=== PATIENT | female | born 1935 | race Caucasian/White ===

== ENCOUNTER 2016-04-19 12:48 | Inpatient (IN) | payer MEDICARE, OTHER ==
[2016-04-19 13:42] LABS: #Basophils 0.1 thou/uL (0.0-0.2); #Lymphocytes 1.1 thou/uL (1.20-3.40); #Monocytes 1.4 thou/uL (0.11-0.59); #Neutrophils 15.4 thou/uL (1.40-6.50); %Basophils 0.5 % (0.0-1.0); %Eosinophils 0.3 % (0.0-10.0); %Monocytes 7.8 % (0.0-10.0); Hematocrit 40.5 % (36.0-47.0); Mean Platelet Volume 6.7 fL (7.4-10.4); Red Blood Cell (RBC) Count 4.42 mill/uL (4.20-5.40); White Blood Cell (WBC) Count 18.1 thou/uL (4.8-10.8)
[2016-04-19 13:59] LABS: ALT (SGPT) 21 U/L (0-55); AST (SGOT) 37 U/L (5-34); Alkaline Phosphatase 56 U/L (40-150); Anion Gap 16 mmol/L (10-20); BUN (Urea Nitrogen) 21 mg/dL (9.8-20.1); Bilirubin, Total 0.7 mg/dL (0.2-1.2); Calc. Creatinine Clearance 0 mL/min (70-130); Calcium 9.5 mg/dL (7.8-10.44); Carbon Dioxide 25 mmol/L (23-31); Chloride 102 mmol/L (98-107); Estimated GFR-MDRD 53; Globulin 3.6 g/dL (2.4-3.5); Protein, Total 7.2 g/dL (5.8-8.1)
[2016-04-19 14:01] LABS: Troponin I 0.019 ng/mL (< 0.028)
[2016-04-19 14:20] LABS: Bilirubin Negative (Negative); Blood, Urine Small (Negative); Glucose, Urine (Dipstick) Negative (Negative); Ketone, Urine 15 mg/dL (Negative); Nitrite Negative (Negative); Protein, Urine (Dipstick) 100 mg/dL (Neg-Trace); Urobilinogen 0.2 mg/dL (0.2-1.0)
[2016-04-19 14:21] LABS: RBC/HPF 0-3 HPF (0-3)
[2016-04-19 14:22] LABS: Bacteria/HPF 3+ HPF (None Seen)
[2016-04-19] MEDS ORDERED: cefTRIAXone\\ROCEPHIN 1 GM VIAL ONE (14:30)
[2016-04-19] MEDS ORDERED: Ondansetron HCl/PF 4 MG/2 ML Vial IVP PRN (16:36)
[2016-04-19] MEDS ORDERED: Acetaminophen 325 MG TAB PO PRN (16:36)
[2016-04-19] MEDS ORDERED: Ondansetron ODT 4 MG TAB SL PRN (16:36)
[2016-04-19 17:18] VITALS: BMI 327.7
[2016-04-19] MEDS ORDERED: Non-Formulary Item 1 EACH (Melatonin [Melatonin] 3 MG) PO PRN (18:12)
[2016-04-19] MEDS ORDERED: ALPRAZolam 0.5 MG TAB PO PRN (18:15)
[2016-04-19] MEDS: Sodium Chloride 0.9% 1,000 ML IV SCH ×3 (19:07→22:38)
--- NOTE | 2016-04-19 19:33 | CT ---
CT OF THE BRAIN WITHOUT CONTRAST: 04/19/[address] was obtained following trauma. Review was made of a prior MRI dated 10/04/14. The ventricles are dilated but commensurate with the degree of atrophy present which is considerable . They are not different in size than in 2015. Profound deep white matter lucency is consistent wit h chronic microvascular ischemia. There were no focal findings strongly suggestive of acute stroke o r edema. No mass was seen. No intracranial bleeding or extra-axial hematoma was noted. The calvarium appears intact. There is no air fluid level in the sphenoid sinus. IMPRESSION: Moderately severe atrophy and chronic ischemic change but no acute intracranial finding. POS: HOME
[2016-04-19] MEDS: TROSPIUM 20 MG TABLET PO SCH (21:33)
[2016-04-20] MEDS: Enoxaparin Sodium 40 MG/0.4 ML SYRINGE SC SCH (05:31)
[2016-04-20 06:55] LABS: Anion Gap 10 mmol/L (10-20); BUN (Urea Nitrogen) 18 mg/dL (9.8-20.1); Calc. Creatinine Clearance 691 mL/min (70-130); Calcium 8.7 mg/dL (7.8-10.44); Carbon Dioxide 27 mmol/L (23-31); Chloride 107 mmol/L (98-107); Estimated GFR-MDRD 63
[2016-04-20 07:35] LABS: #Basophils 0.1 thou/uL (0.0-0.2); #Eosinphils 0.2 thou/uL (0.0-0.7); #Lymphocytes 1.8 thou/uL (1.20-3.40); #Monocytes 1.2 thou/uL (0.11-0.59); #Neutrophils 8.9 thou/uL (1.40-6.50); %Basophils 0.9 % (0.0-1.0); %Eosinophils 1.5 % (0.0-10.0); %Monocytes 10.2 % (0.0-10.0); Hematocrit 34.6 % (36.0-47.0); Mean Platelet Volume 6.9 fL (7.4-10.4); Red Blood Cell (RBC) Count 3.76 mill/uL (4.20-5.40); White Blood Cell (WBC) Count 12.2 thou/uL (4.8-10.8)
[2016-04-20] MEDS: Sodium Chloride 0.9% 1,000 ML IV SCH (08:49)
[2016-04-20] MEDS: Aspirin 81 mg Enteric Coated Tablet PO SCH (08:52)
[2016-04-20] MEDS: TROSPIUM 20 MG TABLET PO SCH ×2 (08:52→20:22)
[2016-04-20] MEDS: Atorvastatin Calcium 10 MG TAB PO SCH (08:56)
[2016-04-20] MEDS: Hydrochlorothiazide 25 MG TAB PO SCH (08:57)
[2016-04-20] MEDS: Lisinopril 10 MG TAB PO SCH (08:58)
[2016-04-20] MEDS ORDERED: Lisinopril 20 MG TAB PO SCH ×2 (09:00)
[2016-04-20] MEDS ORDERED: Hydrochlorothiazide 25 MG TAB PO SCH (09:00)
[2016-04-20] MEDS: Glimepiride 2 MG TAB PO SCH ×3 (09:46→16:44)
[2016-04-20] MEDS ORDERED: Potassium Chloride 20 MEQ TAB PO SCH (10:00)
--- NOTE | 2016-04-20 11:49 | HP ---
DATE OF SERVICE: 04/19/2016 PRIMARY CARE PHYSICIAN: Dr. Pate. ADMITTING PHYSICIAN: Dr. Gibbs. CHIEF COMPLAINT: Generalized weakness with worsening mental status. HISTORY OF PRESENT ILLNESS: Ms. Dhillon is an 80-year-old female with history of hyperten anusha, diabetes, hyperlipidemia, and senile vascular dementia, presented to the emergency room compla ining of worsening mental status and progressive weakness. She was at her baseline a week ago when Adonay, patient's son and acting as medical surrogate noticed that she was becoming weak, she fell la st Sunday and complained of left ankle and back pain afterwards. He also noted decreased appetite a nd over the past 2 days, became confused and more agitated than usual. Yesterday, she refused to ea t. She will have periods of and intermittent agitations with unfamiliar faces, she gets anxious when her son is around. They were advised by Dr. Pate to medicate patient with Zoloft 50 mg late in the afternoon and as needed in the morning if she gets too anxious. Adonay did not report any sign of respiratory distress, chest pain, nausea, vomiting or diarrhea. At the emergency room, she had a temperature of 99.5, blood pressure of 155/63, respiratory rate of 16, O2 sat was 95% at room air. Labs showed WBC of 18, hemoglobin of 13.5, hematocrit of 40, platelet count of 423, neutrophils of 8 5, lymphocytes of 6. Comprehensive metabolic panel: Sodium was 139, potassium 3.5, BUN of 21, creatinine of 1, GFR of 53 , glucose of 184, AST of 37, ALT of 21. Urinalysis showed yellow, slightly cloudy urine with pH of 5.5, specific gravity of 1.025, urine pro tein of 100, urine ketones was positive at 15, presence of small blood, presence of moderate amount of leukocytes, wbc's of 50, positive for epithelial cells of 4-6, and urine bacteria of 3+. CT of the brain showed moderately severe atrophy and chronic ischemic changes, but no acute intracra nial finding. There were no focal findings suggesting acute stroke or edema, no mass seen. No intr acranial bleeding or extraaxial hematoma noted. Lactic acid was 1.0. Patient was given IV Rocephin and fluids to treat urinary tract infection. Her symptoms and findings were consistent for UTI cau sing her progressive weakness and worsening mental status. She is meeting criteria for inpatient at. Initial plan was to transfer patient to [facility], but because of overflow stat , the family agreed the patient to stay at [facility]. PAST MEDICAL HISTORY: 1. Hypertension. 2. Diabetes mellitus. 3. Hyperlipidemia. 4. Depression. 5. Vascular dementia with behavioral changes. 6. Smoker. PAST SURGICAL HISTORY: 1. Back surgery. 2. Carpal tunnel release. PERSONAL SOCIAL HISTORY: The patient lives with son, Adonay, and his for the past 5 years, she has 6 children. She smokes about 1-2 cigarettes when with her sons. She denies alcohol use. MEDICATIONS: 1. Lisinopril/hydrochlorothiazide 20/12.5 one half tablet daily. 2. Glimepiride 1 mg b.i.d. 3. Sertraline 50 mg q. daily to b.i.d. 4. Namenda XR 1 tablet daily. 5. Metformin 250 mg b.i.d. 6. Multivitamins daily. 7. Aspirin 81 mg daily. 8. Januvia 100 mg daily. 9. Simvastatin 20 mg daily. 10. VESIcare 10 mg daily. 11. Seroquel 25 mg 2 tablets at bedtime. 12. Melatonin 3 mg 1 tab at bedtime. ALLERGIES: No known drug allergies. REVIEW OF SYSTEMS: GENERAL: No fever, no chills. Positive for decreased appetite. HEENT: No nasal congestion, no sore throat, no sinus pressure. PULMONARY: No shortness of breath, no wheezing. CARDIOVASCULAR: Negative for chest pain. Positive for edema on left ankle. GASTROINTESTINAL: No abdominal pain, no nausea. Negative for vomiting. Negative for diarrhea. MUSCULOSKELETAL: Occasional joint pains and stiffness. Positive for back pain. NEUROLOGIC: Positive for worsening mental status. Positive for insomnia. PSYCHIATRIC: Negative for depression. Occasional anxiety. PHYSICAL EXAMINATION: VITAL SIGNS: Blood pressure of 168/80, O2 sat 98%, respiratory rate of 18, pulse of 72, temperature of 98.8. GENERAL: The patient is well-developed, well-nourished, pleasant, not in distress with mild agitati on. HEENT: Normocephalic, atraumatic. Pupils equally reactive to light. Negative for tonsillopharynge al congestion. NECK: Supple. Negative for lymphadenopathy. CHEST AND LUNGS: Symmetrical expansion. Clear to auscultation bilaterally. HEART: Regular rate and rhythm. Negative for murmur, rubs or gallops. ABDOMEN: Flat, soft, nontender. Normoactive bowel sounds. Negative for CVA tenderness. EXTREMITIES: Negative for edema. Spontaneous movement of both upper and lower extremities. PSYCHIATRIC: Anxious, appears agitated when questioning. LABORATORY DATA: Reviewed. ASSESSMENT: 1. Altered mental status. 2. Urinary tract infection. 3. Generalized weakness. 4. History of falls. 5. Hypertension. 6. Diabetes mellitus, controlled. 7. Gait instability. 8. Vascular senile dementia. PLAN: 1. Continue IV Rocephin. 2. Continue fluid hydration, taper as needed. 3. Repeat labs in a.m. 4. Reconcile present medication and adjust as needed depending on clinical status. 5. Lovenox and SCDs for DVT prophylaxis. 6. May start physical therapy when stable. 7. Referred to clinical commercial portfolio manager for discharge planning and advised regarding potential need for DME prior to her discharge.
[2016-04-20] MEDS: cefTRIAXone\\ROCEPHIN 1 GM in Sodium Chloride 0.9% 100 ML IVPB SCH (14:35)
[2016-04-21] MEDS: Enoxaparin Sodium 40 MG/0.4 ML SYRINGE SC SCH (05:13)
[2016-04-21] MEDS: Glimepiride 2 MG TAB PO SCH ×2 (09:16→18:57)
[2016-04-21] MEDS: Potassium Chloride 20 MEQ TAB PO SCH (09:18)
[2016-04-21] MEDS: Aspirin 81 mg Enteric Coated Tablet PO SCH (09:18)
[2016-04-21] MEDS: Hydrochlorothiazide 25 MG TAB PO SCH (09:19)
[2016-04-21] MEDS: Atorvastatin Calcium 10 MG TAB PO SCH (09:19)
[2016-04-21] MEDS: Lisinopril 10 MG TAB PO SCH (09:20)
[2016-04-21] MEDS: TROSPIUM 20 MG TABLET PO SCH ×2 (09:21→20:41)
--- NOTE | 2016-04-21 09:23 | PRG ---
DATE OF SERVICE: 04/20/2016 PRIMARY CARE PHYSICIAN: Dr. Michelle Pate ADMITTING PHYSICIAN: Dr. Meri Gibbs SUBJECTIVE: The patient denies any pain. She slept well last night. No agitation This morning; however, this afternoon she was getting anxious, she was medicated with Xanax 0.25 half a tablet an hour ago. She has no fever, appetite is just fine. OBJECTIVE: VITAL SIGNS: Blood pressure 139/75, pulse rate of 80, respiratory rate of 20, O2 sat 93% on room air. Temperature 98.7. GENERAL: The patient is alert, oriented x2 (person and place). HEENT: Normocephalic, atraumatic. Negative for tonsillopharyngeal congestion. NECK: Supple, negative for lymphadenopathies. CHEST AND LUNGS: Symmetrical expansion. Clear to auscultation bilaterally. HEART: Regular rate and rhythm. Negative for murmur, rubs or gallops. EXTREMITIES: Negative for edema. Spontaneous movement of both upper and lower extremities. PSYCHIATRIC: Anxious, responsive, no agitations. LABORATORY DATA: CBC: WBC of 12, hemoglobin of 12, hematocrit of 35, platelet count of 362. Basic metabolic panel: Sodium of 141, potassium of 3.2, chloride of 107, carbon dioxide of 27, BUN of 18, creatinine of 0.86. Accu- Cheks fasting was 84. ASSESSMENT: 1. Urinary tract infection. 2. Altered mental status, improving. 3. Hypokalemia. 4. Generalized weakness. 5. History of falls. 6. Hypertension. 7. Diabetes mellitus, controlled. 8. Gait instability. 9. Senile vascular dementia. PLAN: 1. Continue IV Rocephin, Hep-Lock IV fluids. 2. Potassium is being replaced. 3. We will consult PT for evaluation and treatment to address physical deconditioning. 4. Continue Lovenox and sequential compression devices for deep venous thrombosis prophylaxis. DISPOSITION: Discharge to home once clinically stable. [facility]
[2016-04-21] MEDS: cefTRIAXone\\ROCEPHIN 1 GM in Sodium Chloride 0.9% 100 ML IVPB SCH (14:16)
[2016-04-22] MEDS: Enoxaparin Sodium 40 MG/0.4 ML SYRINGE SC SCH (05:14)
[2016-04-22 06:25] VITALS: TEMP 97.9
[2016-04-22] MEDS: Atorvastatin Calcium 10 MG TAB PO SCH (08:52)
[2016-04-22] MEDS: TROSPIUM 20 MG TABLET PO SCH (08:52)
[2016-04-22] MEDS: Lisinopril 10 MG TAB PO SCH (08:53)
[2016-04-22] MEDS: Hydrochlorothiazide 25 MG TAB PO SCH (08:55)
[2016-04-22] MEDS: Aspirin 81 mg Enteric Coated Tablet PO SCH (08:56)
[2016-04-22] MEDS: Potassium Chloride 20 MEQ TAB PO SCH (08:57)
[2016-04-22] MEDS: Glimepiride 2 MG TAB PO SCH (08:57)
[2016-04-22 09:03] VITALS: BP 120/56
[2016-04-22] MEDS: cefTRIAXone\\ROCEPHIN 1 GM in Sodium Chloride 0.9% 100 ML IVPB SCH (09:13)
--- NOTE | 2016-04-22 13:27 | PRG ---
DATE OF SERVICE: 04/21/2016. PRIMARY CARE PHYSICIAN: Dr. Pate. ADMITTING PHYSICIAN: Dr. Gibbs. SUBJECTIVE: She is doing very well, occasional agitations, controlled with her present Zoloft and X anax. No reported fever. Appetite is stable. She was able to participate with physical therapy an d walk 114 feet x2, she required resting breaks and she requires constant reminders about the use of her walker. Limiting factors regarding her physical therapy were due to decreased attention, decre ase endurance and strength. She has fairly she tolerated the physical therapy quite well. OBJECTIVE: VITAL SIGNS: Blood pressure of 120/56, temperature of 98.1, pulse of 70, respiratory rate of 20, O2 saturation 96% on room air. GENERAL: The patient is alert and oriented x2. HEENT: Normocephalic, atraumatic. Pupils equally reactive to light. Negative for tonsillopharynge al congestion. NECK: Supple. Negative for lymphadenopathy. CHEST AND LUNGS: Symmetrical expansion. Clear to auscultation bilaterally. HEART: Regular rate and rhythm. Negative for murmur, rubs or gallops. EXTREMITIES: Negative for edema. Spontaneous movement of both upper and lower extremities. NEUROLOGIC: No focal deficits. PSYCHIATRIC: Anxious and responsive, no agitations. LABORATORY DATA: Reviewed. ASSESSMENT: 1. Urinary tract infection. 2. Altered mental status, improved, back to baseline. 3. Hypokalemia. 4. Generalized weakness. 5. History of falls. 6. Hypertension. 7. Diabetes mellitus, controlled. 8. Gait instability. 9. Senile vascular dementia. PLAN: 1. Continue IV Rocephin. 2. Continue present medication, discharge to home in a.m. 3. We will order a rolling walker and bedside commode, prescription to be sent to [facility] in [place]. 4. Resume Home Health with physical therapy.
--- NOTE | 2016-04-22 17:33 | DIS ---
DATE OF ADMISSION: 04/19/2016 DATE OF DISCHARGE: 04/22/2016 PRIMARY CARE PHYSICIAN: Dr. Pate. ADMITTING PHYSICIAN: Dr. Gibbs. FINAL DIAGNOSES: 1. Urinary tract infection. 2. Altered mental status, resolved. 3. Hypokalemia, replaced. 4. Generalized weakness, improved. 5. History of falls. 6. Hypertension. 7. Diabetes mellitus. 8. Gait instability. 9. Senile vascular dementia. DISCHARGE MEDICATIONS: 1. Lisinopril/HCTZ 20/12.5 one half tablet daily. 2. Melatonin 3 mg at bedtime. 3. Namenda XR 28 mg daily. 4. Metformin 250 mg b.i.d. 5. Seroquel 25 mg 2 tablets at bedtime. 6. Zoloft 50 mg b.i.d. 7. Simvastatin 20 mg at bedtime. 8. Januvia 100 mg daily. 9. VESIcare 10 mg daily. 10. Bactrim DS 1 tablet b.i.d. for 7 days. HISTORY OF PRESENT ILLNESS/COURSE IN THE [place]: Ms. Dhillon is an 80-year-old female with history of hypertension, diabetes, hyperlipidemia, and senile vascular dementia who presented to the emergency room complaining of worsening mental status and progressive weakness. She was at her baseline a week ago when son noticed patient was becoming week, she fell last Sunday, complained of left ankle and back pain after the fall. She had a decreased appetite prior to her admission, noticed that she was more confused and agitated than usual. At the emergency room, she had labs showing normal CMP. Urinalysis showed positive for bacteria, WBC and small amount of blood. Her CT scan showed moderately severe atrophy and chronic ischemic changes with no bleeding. She was placed on IV Rocephin. Her urine culture grew Klebsiella pneumoniae, pansensitive. Her blood cultures x2 were negative. Her white count had improved from 18 down to 12. She exhibited mild anxiety and agitations that were controlled with medications. Her blood pressure remained stable throughout her stay. Patient was evaluated by physical therapy, she tolerated treatment and was advised to use rolling walker at all times. She had a fever last night, but was back to normal temperature this morning. She denies any acute concerns prior to her discharge. Re-evaluation and after discussion with her son, Adonay, she has noted stable for discharge and Adonay reported she would be better and less agitated when she is back home and mentioned that they can manage her condition at home. INSTRUCTIONS: 1. Follow up with PCP, Dr. Pate in 3 days. They will call and make the appointment. 2. Resume Home Health with physical therapy to address her weakness. DISPOSITION: Discharge to home under the care of son with Home health assistance. CONDITION: Stable. ACTIVITY: Ad adrian with fall precautions. Advised to use rolling walker at all times. DIET: Diabetic diet. MTDD
== END 2016-04-22 10:35 | disposition home health service (06) | DRG 690 ==
LOC: BURERS 12:48 → BURMED 15:00
PROVIDERS: ADMIT Family Medicine; ATTEND Family Medicine
DX: N30.00 Acute cystitis without hematuria (principal); F01.50 Vascular dementia, unspecified severity, without behavioral disturbance, psychotic disturbance, mood disturbance, and anxiety; B96.1 Klebsiella pneumoniae [K. pneumoniae] as the cause of diseases classified elsewhere; E11.9 Type 2 diabetes mellitus without complications; I10 Essential (primary) hypertension; E87.6 Hypokalemia; R26.9 Unspecified abnormalities of gait and mobility; F17.210 Nicotine dependence, cigarettes, uncomplicated; F41.9 Anxiety disorder, unspecified
CPT/HCPCS: 36416; 51701; 70450; 80048; 80053; 81003; 81015; 82553; 83605; 84443; 84484; 85025; 87040; 87077; 87086; 87186; 93005; 96365; 36415-59; A4216; A4353; G8978-GP-CM; G8979-GP-CL; J0696; J1650; J7050

== ENCOUNTER 2016-05-03 12:51 | Emergency (ER) | payer MEDICARE ==
[2016-05-03 13:36] LABS: Bilirubin Negative (Negative); Blood, Urine Negative (Negative); Clarity Clear (Clear); Glucose, Urine (Dipstick) Negative (Negative); Leukocyte Negative (Negative); Nitrite Negative (Negative); Protein, Urine (Dipstick) Negative (Neg-Trace); Urobilinogen 0.2 mg/dL (0.2-1.0); pH, Urine 5.5 (5.0-9.0)
[2016-05-03 13:40] LABS: #Basophils 0.1 thou/uL (0.0-0.2); #Eosinphils 0.2 thou/uL (0.0-0.7); #Lymphocytes 1.7 thou/uL (1.20-3.40); #Neutrophils 10.5 thou/uL (1.40-6.50); %Basophils 0.8 % (0.0-1.0); %Eosinophils 1.7 % (0.0-10.0); %Lymphocytes 12.3 % (21.0-51.0); %Monocytes 7.6 % (0.0-10.0); %Neutrophils 77.6 % (42.0-75.0); Hemoglobin 13.7 g/dL (12.0-16.0); Mean Corpuscular HGB CONC 32.9 g/dL (32.0-36.0); Mean Corpuscular Hemoglobin 30.6 pg (27.0-31.0); Mean Platelet Volume 5.5 fL (7.4-10.4); Platelet Count 606 thou/uL (130-400); RBC Distribution Width 12.3 % (11.5-14.5); Red Blood Cell (RBC) Count 4.49 mill/uL (4.20-5.40); White Blood Cell (WBC) Count 13.6 thou/uL (4.8-10.8)
[2016-05-03 13:53] LABS: Amylase 62 U/L (20-160); Lipase 105 U/L (8-78)
[2016-05-03 13:56] LABS: CKMB 1.9 ng/mL (0-6.6); Troponin I 0.012 ng/mL (< 0.028)
[2016-05-03 13:56] LABS: ALT (SGPT) 35 U/L (0-55); AST (SGOT) 34 U/L (5-34); Albumin 3.8 g/dL (3.4-4.8); Alkaline Phosphatase 63 U/L (40-150); Anion Gap 15 mmol/L (10-20); BUN (Urea Nitrogen) 22 mg/dL (9.8-20.1); Bilirubin, Total 0.3 mg/dL (0.2-1.2); CK (CPK) 62 U/L (29-168); Calc. Creatinine Clearance 0 mL/min (70-130); Calcium 9.5 mg/dL (7.8-10.44); Carbon Dioxide 23 mmol/L (23-31); Chloride 107 mmol/L (98-107); Estimated GFR-MDRD 47; Globulin 3.6 g/dL (2.4-3.5); Glucose 156 mg/dL (83-110); Potassium 4.3 mmol/L (3.5-5.1); Protein, Total 7.4 g/dL (5.8-8.1); Sodium 141 mmol/L (136-145)
--- NOTE | 2016-05-03 17:57 | ULT ---
ABDOMINAL ULTRASOUND 05/03/16 Ultrasonography of the abdomen was performed. The patient is quite gassy which mostly obscures the p ancreas. The liver showed no focal lesions or enlargement. There are no dilated ducts. There has been a prior cholecystectomy. The common bile duct is 7 mm wide which is normal for this patient. The right kidn ey is slightly small measuring 8.3 cm in length but no mass or hydronephrosis was seen in it. The le ft kidney is 9.2 cm in length and similarly was unremarkable in appearance. The spleen is normal in size. The aorta and inferior vena cava were unremarkable. IMPRESSION: No significant abdominal finding. POS: HOME
== END 2016-05-03 14:50 | disposition home or self-care (01) ==
LOC: BURERS 12:51
DX: N39.0 Urinary tract infection, site not specified (principal); I10 Essential (primary) hypertension; E11.9 Type 2 diabetes mellitus without complications; F17.210 Nicotine dependence, cigarettes, uncomplicated; F03.90 Unspecified dementia, unspecified severity, without behavioral disturbance, psychotic disturbance, mood disturbance, and anxiety
CPT/HCPCS: 36415; 51700; 76700; 80053; 81003; 82150; 82553; 83690; 84484; 85025; A4353

== ENCOUNTER 2016-12-03 21:45 | Emergency (ER) | payer MEDICARE, MEDICAID ==
--- NOTE | 2016-12-03 23:16 | CT ---
CT OF THE BRAIN WITHOUT CONTRAST: Date: 12-03-[address] of the brain was done and compared with a 11-15-16 study. FINDINGS: Diffuse atrophy and profound deep white matter ischemic changes are present as usual. No intracrania l bleeding or extraaxial hematoma was seen. There were no finding strongly suggestive of acute strok e. No mass or edema was seen. The calvarium appears intact and the sphenoid sinus shows no air fluid levels. Exostoses are seen in the right parietal region as on the prior scans. IMPRESSION: Chronic changes but no acute intracranial findings. POS: HOME
--- NOTE | 2016-12-03 23:49 | CT ---
CT OF THE CERVICAL SPINE: Date: 12-03-[address] of the cervical spine was performed following trauma. Axial slices were acquired and then coronal and sagittal reconstructions were done. FINDINGS: No fracture, dislocation or acute bony change was seen. The C1-2 dens distance is normal and the sof t tissues are normal in thickness. There is extensive ossification of the anterior longitudinal liga ment, especially between C3 and C6. Prominent anterior osteophytes are particularly present at C6-7. C1-2: No acute findings. C2-3: Minimal disc osteophyte posteriorly without significant stenosis. Foramina are patent. C3-4: At most, minor left foraminal stenosis. C4-5: No acute findings. C5-6: No acute findings. C6-7: Prominent disc osteophyte complex centrally that causes some central canal stenosis. This is o bviously long standing. AP diameter of the canal here is about 8 mm. There is moderate bilateral for aminal stenosis. C7-T1: No acute findings. A small line on the left side of the vertebra near a rib articulation does not appear to be a fracture. IMPRESSION: Extensive degenerative changes as noted with central canal stenosis being prominent at C6-7. No acut e traumatic findings. POS: HOME
== END 2016-12-03 23:30 | disposition home or self-care (01) ==
LOC: BURERS 21:45
DX: S00.03XA Contusion of scalp, initial encounter (principal); E11.9 Type 2 diabetes mellitus without complications; F41.9 Anxiety disorder, unspecified; F32.9 Major depressive disorder, single episode, unspecified; F17.210 Nicotine dependence, cigarettes, uncomplicated; W17.89XA Other fall from one level to another, initial encounter
CPT/HCPCS: 70450; 72125

== ENCOUNTER 2016-12-22 10:10 | Outpatient (CLI) | payer MEDICARE, OTHER ==
--- NOTE | 2016-12-22 17:50 | RAD ---
LUMBAR SPINE THREE VIEWS 12/22/16 No fracture was appreciated. The disc spaces are normal in height. Degenerative facet disease is pre sent, particularly in the lower lumbar spine. There is a very mild anterolisthesis of L4 on L5 that is probably due to facet arthritis. Dense calcification of the aorta and iliac arteries is apparent. The SI joints were unremarkable. IMPRESSION: Prominent degenerative changes as noted, particularly in the lower lumbar spine. No acute traumatic findings. POS: HOME
== END 2016-12-22 10:11 | disposition home or self-care (01) ==
LOC: BURRAD 10:10
PROVIDERS: ATTEND Family Medicine
DX: Z91.81 History of falling (principal); M47.896 Other spondylosis, lumbar region
CPT/HCPCS: 72100

== ENCOUNTER 2017-05-26 15:40 | Emergency (ER) | payer MEDICARE, OTHER ==
--- NOTE | 2017-05-26 16:19 | RAD ---
PORTABLE AP CHEST X-RAY 05/26/17 HISTORY: Generalized weakness over the last two to three days, altered mental status. COMPARISON: 11/15/16. FINDINGS: The cardiac silhouette and pulmonary vasculature are within normal limits. The lungs remain clear. Va scular calcification in the thoracic aorta. There is bilateral glenohumeral osteoarthropathy with rig ht acromioclavicular joint osteoarthritis. There has been no interval change from the prior exam. IMPRESSION: No acute cardiopulmonary process. POS: [facility]
[2017-05-26 16:28] LABS: #Basophils 0.1 thou/uL (0.0-0.2); #Eosinphils 0.2 thou/uL (0.0-0.7); #Lymphocytes 1.4 thou/uL (1.20-3.40); #Neutrophils 8.5 thou/uL (1.40-6.50); %Basophils 0.9 % (0.0-1.0); %Eosinophils 1.6 % (0.0-10.0); %Lymphocytes 12.4 % (21.0-51.0); %Monocytes 9.3 % (0.0-10.0); %Neutrophils 75.8 % (42.0-75.0); Hemoglobin 15.2 g/dL (12.0-16.0); Mean Corpuscular HGB CONC 34.6 g/dL (32.0-36.0); Mean Corpuscular Hemoglobin 30.2 pg (27.0-31.0); Mean Corpuscular Volume 87.2 fl (81.0-99.0); Platelet Count 406 thou/uL (130-400); RBC Distribution Width 13.4 % (11.5-14.5); Red Blood Cell (RBC) Count 5.03 mill/uL (4.20-5.40); White Blood Cell (WBC) Count 11.2 thou/uL (4.8-10.8)
[2017-05-26 16:47] LABS: CKMB 3.2 ng/mL (0-6.6); Troponin I 0.079 ng/mL (< 0.028)
[2017-05-26 16:51] LABS: ALT (SGPT) 21 U/L (8-55); AST (SGOT) 37 U/L (5-34); Albumin 3.8 g/dL (3.4-4.8); Alkaline Phosphatase 68 U/L (40-150); Anion Gap 24 mmol/L (10-20); BUN (Urea Nitrogen) 109 mg/dL (9.8-20.1); Bilirubin, Total 0.6 mg/dL (0.2-1.2); Calc. Creatinine Clearance 0 mL/min (70-130); Calcium 10.4 mg/dL (7.8-10.44); Carbon Dioxide 23 mmol/L (23-31); Chloride 99 mmol/L (98-107); Estimated GFR-MDRD 16; Globulin 3.4 g/dL (2.4-3.5); Glucose 126 mg/dL (83-110); Lipase 138 U/L (8-78); Potassium 3.5 mmol/L (3.5-5.1); Protein, Total 7.2 g/dL (6.0-8.3); Sodium 142 mmol/L (136-145)
[2017-05-26 17:06] LABS: Bilirubin Small (Negative); Blood, Urine Trace (Negative); Clarity Slightly Cloudy (Clear); Glucose, Urine (Dipstick) Negative (Negative); Leukocyte Negative (Negative); Nitrite Negative (Negative); Protein, Urine (Dipstick) Negative (Neg-Trace); Specific Gravity, Urine 1.015 (1.005-1.030); Urobilinogen 0.2 mg/dL (0.2-1.0)
[2017-05-26 17:13] LABS: Bacteria/HPF 1+ HPF (None Seen); Crystals/HPF None Seen HPF (Negative); Hyaline Casts/LPF NONE SEEN LPF (0-3 Hyaline); Other Casts/LPF None Seen LPF (0-3 Hyaline); Oval Fat Bodies/HPF None Seen HPF (None Seen); RBC/HPF 0-3 HPF (0-3); Renal Epithelial None Seen HPF (0-3); Sperm/HPF None Seen HPF (None Seen); Squamous Epithelial 0-3 HPF (0-3); Transitional Epithelial NONE SEEN HPF (0-3); Trichomonas/HPF None Seen HPF (None Seen); WBC/HPF 0-3 HPF (0-3); Yeast-All Forms None Seen HPF (None Seen)
== END 2017-05-26 22:52 | disposition short-term general hospital (02) ==
LOC: BURERS 15:40
DX: E86.0 Dehydration (principal); F03.90 Unspecified dementia, unspecified severity, without behavioral disturbance, psychotic disturbance, mood disturbance, and anxiety; I10 Essential (primary) hypertension; E11.9 Type 2 diabetes mellitus without complications; J44.9 Chronic obstructive pulmonary disease, unspecified; I48.91 Unspecified atrial fibrillation; F41.9 Anxiety disorder, unspecified; F32.9 Major depressive disorder, single episode, unspecified; Z87.891 Personal history of nicotine dependence; Z79.899 Other long term (current) drug therapy; Z79.84 Long term (current) use of oral hypoglycemic drugs
CPT/HCPCS: 51701; 71045; 80053; 81003; 81015; 82553; 83605; 83690; 83880; 84484; 85025; 87040; 93005; 94760; 96360; 96361; A4353

== ENCOUNTER 2017-06-03 07:42 | Emergency (ER) | payer MEDICARE, MEDICAID ==
[2017-06-03] MEDS ORDERED: Lorazepam 2 MG/ML VIAL ONE (08:50)
--- NOTE | 2017-06-03 10:18 | CT ---
CT OF THE CERVICAL SPINE: DATE: 06/03/17. FINDINGS: Spiral CT of the cervical spine was compared with the prior study dated 12/03/16. Axial slices were a cquired, then coronal reconstructions were done. Sagittal reconstructions were done as well. No fracture, dislocation, or acute bony change was seen. Changes since the prior scan are minimal. The C1 to dens distance is normal and the soft tissues are normal in thickness. Findings by level fo llow: C1-C2: No acute findings. C2-C3: No acute findings. C3-C4: Moderate left foraminal stenosis due to osteophytes. C4-C5: Small central osteophyte without significant impingement. C5-C6: No acute findings. There is probably mild foraminal stenosis bilaterally. C6-C7: Large posterior disk-osteophyte complex, particularly towards the left that causes left later al recess stenosis. Central canal stenosis is present with a narrowing to about 7.5 mm. There is se tona left foraminal stenosis and moderate right foraminal stenosis. C7-T1: No acute findings, but there may be some left foraminal stenosis. T1-T2: No acute findings. There are very large anterior osteophytes present at multiple levels in this patient which are bridgi ng. The lung apices were clear. The thyroid gland seems generous in size and a little inhomogeneous , but no focal mass was identified. IMPRESSION: Degenerative change and spinal stenosis as noted above. No acute traumatic changes. POS: HOME
--- NOTE | 2017-06-03 10:22 | CT ---
CT OF THE BRAIN: DATE: 06/03/17. COMPARISON: Comparison is made with a 12/03/16 study. FINDINGS: Diffuse chronic ischemic changes are present as usual; however, there is a new low-density area in th e left occipital region that was not present before. The findings are suspicious for a more recent s troke. It is slightly hyperdense within this region, but most of the area is hypodense. Diffuse atrophy with compensatory dilatation of the ventricles is noted and is no different than befo re. Ischemic changes elsewhere are about the same. No intracranial bleeding or extraaxial hematoma was seen. No skull fracture was evident and the sphenoid sinuses are clear. The mastoid air cells a re clear. The patient has several bony densities in the scalp attached to the skull such as osteomas or similar findings. They have not changed over time. IMPRESSION: 1. Diffuse atrophy and severe chronic ischemic changes. 2. No acute traumatic findings. 3. New mixed-density, mainly low-density area in the medial left occipital lobe that most likely rep resents stroke. A more recent/subacute stroke is possible. It was not present on the 2017 scan. Findings discussed with Dr. Sun at 0842 on 06/03/17. CODE CR POS: HOME
== END 2017-06-03 09:35 | disposition home or self-care (01) ==
LOC: BURERS 07:42
DX: S01.01XA Laceration without foreign body of scalp, initial encounter (principal); F03.90 Unspecified dementia, unspecified severity, without behavioral disturbance, psychotic disturbance, mood disturbance, and anxiety; I10 Essential (primary) hypertension; E11.9 Type 2 diabetes mellitus without complications; J44.9 Chronic obstructive pulmonary disease, unspecified; I48.91 Unspecified atrial fibrillation; F41.9 Anxiety disorder, unspecified; F32.9 Major depressive disorder, single episode, unspecified; Z87.891 Personal history of nicotine dependence; Z79.84 Long term (current) use of oral hypoglycemic drugs; Z79.899 Other long term (current) drug therapy; Z79.82 Long term (current) use of aspirin; W19.XXXA Unspecified fall, initial encounter; Y92.129 Unspecified place in nursing home as the place of occurrence of the external cause
CPT/HCPCS: 12001; 70450; 72125; 96372; J2060